=== PATIENT | female | born 2000 | race Hispanic/Latino ===

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

== ENCOUNTER 2021-01-19 20:12 | Emergency (ER) | payer OTHER, SELFPAY ==
[2021-01-19 21:38] LABS: #Basophils 0.1 thou/uL (0.0-0.2); #Eosinphils 0.1 thou/uL (0.0-0.7); #Lymphocytes 2.4 thou/uL (1.20-3.40); #Monocytes 0.7 thou/uL (0.11-0.59); #Neutrophils 6.1 thou/uL (1.40-6.50); %Basophils 0.9 % (0.0-1.0); %Eosinophils 1.5 % (0.0-10.0); %Lymphocytes 25.4 % (28.0-48.0); %Monocytes 7.5 % (0.0-4.0); %Neutrophils 64.7 % (31.0-61.0); Hemoglobin 12.7 g/dL (12.0-16.0); Mean Corpuscular HGB CONC 34.7 g/dL (32.0-36.0); Mean Corpuscular Volume 86.4 fL (78.0-98.0); Mean Platelet Volume 7.3 fL (7.4-10.4); Platelet Count 312 thou/uL (130-400); RBC Distribution Width 12.4 % (11.5-14.5); Red Blood Cell (RBC) Count 4.24 mill/uL (4.00-5.20); White Blood Cell (WBC) Count 9.5 thou/uL (4.8-10.8)
[2021-01-19 21:58] LABS: Bilirubin Negative (Negative); Blood, Urine 3+ (Negative); Calcium Oxalate Crystals 2+ HPF (None Seen); Clarity Clear (Clear); Glucose, Urine (Dipstick) Normal (Negative); Ketone, Urine Negative (Negative); Leukocyte 25 Leu/uL (Negative); Nitrite Negative (Negative); Protein, Urine (Dipstick) 20 mg/dL (Neg-Trace); RBC/HPF 0-3 HPF (0-3); Specific Gravity, Urine 1.035 (1.002-1.036); Urobilinogen Normal mg/dL (Less than 2); pH, Urine 5.5 (5.0-9.0)
[2021-01-19 22:01] LABS: Bacteria/HPF 1+ HPF (None Seen)
[2021-01-19 22:04] LABS: Pregs Control Bar Appear? YES (CONTROL BAR)
[2021-01-19 22:05] LABS: BHCG - Serum POSITIVE (NEGATIVE); Pregs Control Background? CLEAR/WHITE (CLR/WHITE)
== END 2021-01-19 23:23 | disposition home or self-care (01) ==
LOC: ERS 20:12
DX: O20.9 Hemorrhage in early pregnancy, unspecified (principal); O99.512 Diseases of the respiratory system complicating pregnancy, second trimester; Z3A.15 15 weeks gestation of pregnancy
CPT/HCPCS: 36415; 76856; 81003; 81015; 84703; 85025; 86900; 86901; 93976

== ENCOUNTER 2021-09-22 20:56 | Emergency (ER) | payer OTHER ==
[2021-09-22 21:45] LABS: #Basophils 0.1 thou/uL (0.0-0.2); #Eosinphils 0.2 thou/uL (0.0-0.7); #Lymphocytes 2.7 thou/uL (1.20-3.40); #Monocytes 0.7 thou/uL (0.11-0.59); #Neutrophils 4.6 thou/uL (1.40-6.50); %Basophils 1.1 % (0.0-1.0); %Eosinophils 2.7 % (0.0-10.0); %Lymphocytes 32.9 % (28.0-48.0); %Monocytes 8.2 % (0.0-4.0); %Neutrophils 55.2 % (31.0-61.0); Hemoglobin 12.8 g/dL (12.0-16.0); Mean Corpuscular Hemoglobin 29.8 pg (25.0-35.0); Mean Corpuscular Volume 87.4 fL (78.0-98.0); Mean Platelet Volume 7.8 fL (7.4-10.4); Platelet Count 335 thou/uL (130-400); RBC Distribution Width 12.9 % (11.5-14.5); Red Blood Cell (RBC) Count 4.31 mill/uL (4.00-5.20); White Blood Cell (WBC) Count 8.3 thou/uL (4.8-10.8)
[2021-09-22] MEDS ORDERED: Meclizine HCl 25 MG TAB ONE (21:55)
[2021-09-22] MEDS ORDERED: Ondansetron ODT 4 MG TAB ONE (21:55)
[2021-09-22 22:14] LABS: BHCG - Serum Negative (NEGATIVE); Pregs Control Background? CLEAR/WHITE (CLR/WHITE); Pregs Control Bar Appear? YES (CONTROL BAR)
[2021-09-22 22:47] LABS: Albumin 4.8 g/dL (3.5-5.0)
[2021-09-22 22:48] LABS: Chloride 106 mmol/L (98-107); Potassium 4.3 mmol/L (3.5-5.1); Sodium 140 mmol/L (136-145)
[2021-09-22 22:49] LABS: Calcium 9.5 mg/dL (7.8-10.44)
[2021-09-22 22:50] LABS: Globulin 3.1 g/dL (2.4-3.5); Glucose 87 mg/dL (70-105); Protein, Total 7.9 g/dL (6.0-8.3)
[2021-09-22 22:51] LABS: Anion Gap 22 mmol/L (10-20); Carbon Dioxide 16 mmol/L (22-29)
[2021-09-22 22:52] LABS: Bilirubin, Total 0.3 mg/dL (0.2-1.2)
[2021-09-22 22:53] LABS: Alkaline Phosphatase 95 U/L (40-100); Calc. Creatinine Clearance 0 mL/min (70-130)
[2021-09-22 22:54] LABS: BUN (Urea Nitrogen) 14 mg/dL (7.0-18.7)
[2021-09-22 22:55] LABS: AST (SGOT) 29 U/L (5-34)
[2021-09-22 23:17] LABS: ALT (SGPT) 34 U/L (8-55)
== END 2021-09-22 23:18 | disposition home or self-care (01) ==
LOC: ERS 20:56
DX: H81.13 Benign paroxysmal vertigo, bilateral (principal); R00.1 Bradycardia, unspecified; J45.909 Unspecified asthma, uncomplicated; D50.9 Iron deficiency anemia, unspecified
CPT/HCPCS: 36415; 80053; 84703; 85025; 93005; Q0162